=== PATIENT | female | born 1990 | race African-American/Black ===

== ENCOUNTER 2017-08-16 12:28 | Emergency (ER) | payer OTHER ==
[2017-08-16 12:40] VITALS: BP 132/76; BMI 38.0
--- NOTE | 2017-08-16 13:16 | DR.GENAD ---
HPI - PCP Primary Care Physician: NFD - Complaint/Symptoms Chief Complaint:: PT C/O LEFT ABCESS UNDER HER ARM ,, Self Treatment fo Chief Complaint: PT HAS ABCESS NOTED TO PTS LEFT UNDER ARM.... - Source History Provided: Patient - Mode of Arrival Mode of Arrival: Ambulatory - Timing Onset of Chief Complaint: 08/14/17 PMH - PMH Past Medical History: No Past Surgical History: No - Family History History of Family Medical Conditions: No - Social History Does patient currently use any type of tobacco product: Yes Have you used tobacco products in the last 12 months: Yes Type of Tobacco Use: Cigarettes How many years tobacco product used: 8 Does any household member use tobacco: No Alcohol Use: None Do you use any recreational Drugs:: No Lives With: Family Lives Where: Home - infectious screening In the last 2 months have you had wt loss of >10#?: NO Have you had fever, night sweats or hemotysis?: No Have you traveled outside the country in the last 6 months?: No Isolation: Standard ROS - Review of Systems Eyes: No Symptoms Reported ENTM: No Symptoms Reported Respiratoy: No Symptoms Reported Cardiovascular: No Symptoms Reported Gastrointestinal/Abdominal: No Symptoms Reported Genitourinary: No Symptoms Reported Neurological: No Symptoms Reported Musculoskeletal: No Symptoms Reported Integumentary: Lesions (abscess left axilla ) Hematologic/Lymphatic: No Symptoms Reported Endocrine: No Symptoms Reported Psychiatric: No Symptoms Reported All Other Systems: Reviewed and Negative PE - Vital Signs Vitals: Temperature 97.2 F Pulse Rate 109 Respiratory Rate 20 Blood Pressure 132/76 O2 Sat by Pulse Oximetry 99 - General General Appearance: Alert, In No Apparent Distress - Head Head Exam: Normal Inspection - Eyes Eye exam: Normal Appearance, PERRL, EOMI - ENT ENT Exam: Normal Exam External Ear Exam: Normal External Inspection TM/Canal Exam: Bilateral Normal Nose Exam: Normal Nose Exam Mouth Exam: Normal Inspection Throat Exam: Normal Inspection - Neck Neck Exam: Normal Inspection, Full ROM - Chest Chest Inspection: Normal Inspection - Respiratory Respiratory Exam: Normal Lung Sounds Bilat Respiratory Exam: Bilateral Clear to Auscultation - Cardiovascular Cardiovascular Exam: Regular Rate, Normal Rhythm - Abdominal Exam Abdominal Exam: Normal Inspection, Normal Bowel Sounds Abdominal Tenderness: negative: RUQ, RLQ, LUQ, LLQ, Epigastrium, Suprapubic, Diffuse, Mild, Moderate, Severe, Other - Extremities Extremities Exam: Normal Inspection, Full ROM - Back Back Exam: Normal Inspection, Full ROM - Neurologic Neurological Exam: Alert, Oriented X3, CN II-XII Intact - Skin Skin Exam: Warm, Dry, Other (lymph adenitis left axilla) Course - Education/Counseling Education/Counseling: Patient, Education Educated On: Treatment, Diagnosis, Prognosis, Needs for Follow Up (if lesion does not resolve) - Diagnosis Discharge Problem: Lymph node abscess - Discharge Plan Condition: Stable - Follow ups/Referrals Follow ups/Referrals: NFD,None [Primary Care Provider] - 3 days - Instructions
== END 2017-08-16 13:25 | disposition home or self-care (01) ==
LOC: ER 13:01
PROC: 0X9540Z Drainage of Left Axilla with Drainage Device, Percutaneous Endoscopic Approach (ICD-10-PCS; principal; 2017-08-16)
DX: L02.412 Cutaneous abscess of left axilla (principal)
CPT/HCPCS: 87070; 87075; 87205; 99282

== ENCOUNTER 2017-12-25 08:42 | Emergency (ER) | payer OTHER ==
[2017-12-25 08:52] VITALS: BP 151/114; BMI 35.6
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
[2017-12-25 09:21] LABS: BILIRUBIN,URINE NEGATIVE (NEGATIVE); BLOOD/HEMOGLOBIN,URINE 1+ (NEGATIVE); GLUCOSE, URINE NEGATIVE (NEGATIVE); KETONES,URINE NEGATIVE (NEGATIVE); LEUKOCYTE ESTERASE ,URINE 3+ (NEGATIVE); NITRITES,URINE NEGATIVE (NEGATIVE); PH,URINE 6.5 (5.0 - 8.0); PROTEIN,URINE NEGATIVE (NEGATIVE); UROBILINOGEN,URINE NORMAL (NORMAL)
[2017-12-25 09:35] LABS: SERUM PREGNANCY TEST, QUAL POSITIVE >10 mIU/mL
[2017-12-25 09:47] LABS: APPEARANCE,URINE SLIGHTLY HAZY (CLEAR); COLOR,URINE YELLOW (YELLOW); RBC,URINE 0-3 /HPF (NEGATIVE)
[2017-12-25 09:48] LABS: AMORPHOUS SEDIMENT,UR TRACE /HPF (NEGATIVE); BACTERIA,URINE TRACE /HPF (NEGATIVE); SQUAMOUS EPITHELIAL CELL,UR MANY /HPF (NEGATIVE)
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
== END 2017-12-25 11:11 | disposition home or self-care (01) ==
LOC: ER 08:51
DX: R10.84 Generalized abdominal pain (principal); Z3A.08 8 weeks gestation of pregnancy; Z04.71 Encounter for examination and observation following alleged adult physical abuse
CPT/HCPCS: 36415; 76801; 81001; 84702; 84703; 99282; 99284

== ENCOUNTER 2018-07-27 06:24 | Inpatient (IN) ==
[2018-07-27] MEDS ORDERED: D5LR 1L W PITOCIN 10 UNITS/L 10 UNITS/1,000 ML BAG IV ONE ×2 (06:38→17:34)
[2018-07-27] MEDS ORDERED: PITOCIN ONE (06:39)
[2018-07-27] MEDS ORDERED: D5 1/2 NS 1000 ML 1,000 ML IV ONE (06:39)
[2018-07-27] MEDS ORDERED: D5 1/2 NS 1L W PITOCIN 20 UNITS/L 20 UNITS/1,000 ML BAG IV ONE (06:39)
[2018-07-27] MEDS ORDERED: PITOCIN IVP ONE (07:00)
[2018-07-27] MEDS ORDERED: D5 1/2 NS 1000 ML 1,000 ML IV SCH (07:00)
[2018-07-27] MEDS ORDERED: NUBAIN INJ 200 MG VIAL MULTIDOSE IVP PRN (07:00)
[2018-07-27 07:21] LABS: BILIRUBIN,URINE NEGATIVE (NEGATIVE); BLOOD/HEMOGLOBIN,URINE 3+ (NEGATIVE); GLUCOSE, URINE NEGATIVE (NEGATIVE); KETONES,URINE NEGATIVE (NEGATIVE); LEUKOCYTE ESTERASE ,URINE 3+ (NEGATIVE); NITRITES,URINE NEGATIVE (NEGATIVE); PROTEIN,URINE 2+ (NEGATIVE); UROBILINOGEN,URINE NORMAL (NORMAL)
[2018-07-27 07:25] LABS: APPEARANCE,URINE HAZY (CLEAR); COLOR,URINE YELLOW (YELLOW)
[2018-07-27 07:29] LABS: BACTERIA,URINE 1+ /HPF (NEGATIVE); RBC,URINE 0-2 /HPF (NONE SEEN); SQUAMOUS EPITHELIAL CELL,UR RARE /HPF (NEGATIVE)
[2018-07-27] MEDS: D5LR 1L W PITOCIN 10 UNITS/L 10 UNITS/1,000 ML BAG IV PRN ×2 (07:30→18:02)
[2018-07-27 07:32] LABS: BASOPHILS # (AUTO) 0.1 X10^3/uL (0.0-0.1); BASOPHILS % (AUTO) 0.5 % (0.2-1.0); EOSINOPHILS % (AUTO) 0.5 % (0.9-2.9); HEMATOCRIT 31.8 % (36.0-47.0); LYMPHOCYTES # (AUTO) 2.6 X10^3/uL (1.3-2.9); MEAN CORPUSCULAR HEMOGLOBIN 32.2 pg (27.0-34.0); MEAN CORPUSCULAR HGB CONC 34.5 g/dL (33.0-35.0); MEAN CORPUSCULAR VOLUME 93.5 fL (80.0-100.0); MEAN PLATELET VOLUME 7.9 fL (7.4-11.0); MONOCYTES # (AUTO) 0.7 x10^3/uL (0.3-0.8); MONOCYTES % (AUTO) 7.5 % (0.0-13.0); NEUTROPHILS # (AUTO) 6.2 x10^3/uL (2.2-4.8); NEUTROPHILS % (AUTO) 64.5 % (42.0-75.0); PLATELET COUNT 308 X10^3/uL (150.0-450.0); RED CELL DISTRIBUTION WIDTH 15.6 % (11.6-16.5); WHITE BLOOD COUNT 9.6 X10^3/uL (3.6-10.0)
[2018-07-27 07:37] LABS: BLOOD UREA NITROGEN 4 mg/dL (7-18); CALCIUM 8.2 mg/dL (8.5-10.1); CARBON DIOXIDE 24.4 mmol/L (21-32); CHLORIDE 103 mmol/L (98-107); COR NA(FOR HYPERGLY) 137 mmol/L (136-145); CREATININE 0.69 mg/dL (0.55-1.02); SODIUM 136 mmol/L (136-145); eGFR NON BLACK RACES > 60 (>60)
[2018-07-27] MEDS ORDERED: FENTANYL INJ 100 mcg EPI ONE (10:06)
[2018-07-27] MEDS ORDERED: LR 1000 ML IV 1,000 ML IV ONE ×2 (10:06→10:08)
[2018-07-27] MEDS ORDERED: FENTANYL INJ 100 mcg ONE (10:08)
[2018-07-27] MEDS ORDERED: XYLOCAINE 1 % (PLAIN) ONE (10:08)
[2018-07-27] MEDS ORDERED: ADRENALINE CHL INJ ONE (10:09)
[2018-07-27] MEDS ORDERED: NAROPIN EPIDURAL 0.2% + FENTANYL 90MCG 60 ML EPI ONE ×2 (10:09→17:34)
[2018-07-27] MEDS ORDERED: NUBAIN INJ 10 ONE (10:40)
[2018-07-27] MEDS: NAROPIN EPIDURAL 0.2% 60 ML with FENTANYL INJ 100 mcg 90 MCG IVP SCH ×4 (12:40→18:01)
[2018-07-27] MEDS: D5 1/2 NS 1000 ML 1,000 ML with PITOCIN 20 UNITS IV SCH ×2 (19:25)
[2018-07-27] MEDS ORDERED: DERMOPLAST SPRAY TOP PRN (19:26)
[2018-07-27] MEDS ORDERED: BENADRYL INJ 50 MG VIAL IVP PRN (21:05)
[2018-07-27] MEDS: MOTRIN TAB 800 MG PO PRN (23:38)
[2018-07-28] MEDS: D5 1/2 NS 1000 ML 1,000 ML with PITOCIN 20 UNITS IV SCH ×6 (05:10→23:26)
[2018-07-28 05:16] LABS: HEMATOCRIT 30.8 % (36.0-47.0); HEMOGLOBIN 10.5 g/dL (12.0-16.0)
[2018-07-28] MEDS: MOTRIN TAB 800 MG PO PRN ×2 (10:55→23:39)
[2018-07-28] MEDS ORDERED: ADACEL or BOOSTRIX TDaP VACCINE IM ONE (11:00)
[2018-07-28] MEDS: MIRALAX POWDER (1 DOSE 17 G) PO SCH ×2 (15:37→21:45)
[2018-07-29] MEDS: D5 1/2 NS 1000 ML 1,000 ML with PITOCIN 20 UNITS IV SCH ×2 (03:54)
[2018-07-29] MEDS: MOTRIN TAB 800 MG PO PRN (06:42)
[2018-07-29 08:53] VITALS: BP 109/59
== END 2018-07-29 15:25 | disposition home or self-care (01) | DRG 775 ==
LOC: LD 06:24
PROVIDERS: ADMIT Obstetrics & Gynecology Obstetrics; ATTEND Obstetrics & Gynecology Obstetrics
DX: Z37.0 Single live birth; O80 Encounter for full-term uncomplicated delivery; Z23 Encounter for immunization; Z3A.39 39 weeks gestation of pregnancy
CPT/HCPCS: 36415; 59409; 80048; 81001; 85014; 85018; 85025; 86592; 86850; 86880; 86900; 86901; 90715; A4216; A4222; J0171; J1200; J2300; J2590; J3010; J7120; S5010

== ENCOUNTER 2019-09-02 06:10 | Inpatient (IN) ==
[2019-09-02] MEDS ORDERED: D5LR 1L W PITOCIN 10 UNITS/L 10 UNITS/1,000 ML BAG IV PRN (06:35)
[2019-09-02] MEDS ORDERED: D5LR 1L W PITOCIN 10 UNITS/L 10 UNITS/1,000 ML BAG IV ONE (06:50)
[2019-09-02] MEDS ORDERED: D5 1/2 NS 1000 ML 1,000 ML IV ONE (06:51)
[2019-09-02] MEDS ORDERED: MORPHINE SULFATE INJ 2 MG INJ IVP PRN (07:54)
[2019-09-02] MEDS ORDERED: PITOCIN IVP ONE (07:54)
[2019-09-02] MEDS ORDERED: REGLAN INJ 10 MG VIAL IVP PRN (07:54)
[2019-09-02] MEDS ORDERED: NUBAIN INJ 200 MG VIAL MULTIDOSE IVP PRN (07:54)
[2019-09-02] MEDS ORDERED: PHENERGAN INJ 25 MG IM PRN ×2 (07:54→17:01)
[2019-09-02] MEDS ORDERED: AMPICILLIN VIAL 2 GRAM 2 G in NS 100 ML IV + SPIKE MINIBAG* 100 ML IV SCH (08:00)
[2019-09-02] MEDS ORDERED: D5 1/2 NS 1000 ML 1,000 ML IV SCH (08:00)
[2019-09-02] MEDS ORDERED: AMPICILLIN VIAL 2 GRAM ONE (08:19)
[2019-09-02] MEDS ORDERED: NS 100 ML IV 100 ML IV ONE ×2 (08:21→12:10)
[2019-09-02 08:35] LABS: BASOPHILS # (AUTO) 0.1 X10^3/uL (0.0-0.1); BASOPHILS % (AUTO) 0.5 % (0.2-1.0); EOSINOPHILS # (AUTO) 0.1 x10^3/uL (0.0-0.2); EOSINOPHILS % (AUTO) 0.6 % (0.9-2.9); HEMATOCRIT 37.1 % (36.0-47.0); HEMOGLOBIN 12.7 g/dL (12.0-16.0); LYMPHOCYTES # (AUTO) 2.8 X10^3/uL (1.3-2.9); LYMPHOCYTES % (AUTO) 25.7 % (21.0-51.0); MEAN CORPUSCULAR HEMOGLOBIN 30.1 pg (27.0-34.0); MEAN CORPUSCULAR HGB CONC 34.2 g/dL (33.0-35.0); MEAN CORPUSCULAR VOLUME 88.1 fL (80.0-100.0); MEAN PLATELET VOLUME 8.1 fL (7.4-11.0); MONOCYTES # (AUTO) 0.8 x10^3/uL (0.3-0.8); MONOCYTES % (AUTO) 7.2 % (0.0-13.0); NEUTROPHILS # (AUTO) 7.2 x10^3/uL (2.2-4.8); PLATELET COUNT 294 X10^3/uL (150.0-450.0); RED BLOOD COUNT 4.21 X10^6/uL (3.5-5.4); RED CELL DISTRIBUTION WIDTH 14.2 % (11.6-16.5); WHITE BLOOD COUNT 10.9 X10^3/uL (3.6-10.0)
[2019-09-02 08:36] LABS: BLOOD UREA NITROGEN 6 mg/dL (7-18); CALCIUM 8.3 mg/dL (8.5-10.1); CARBON DIOXIDE 23.2 mmol/L (21-32); CHLORIDE 102 mmol/L (98-107); SODIUM 136 mmol/L (136-145); eGFR NON BLACK RACES > 60 (>60)
[2019-09-02 08:51] LABS: BILIRUBIN,URINE NEGATIVE (NEGATIVE); BLOOD/HEMOGLOBIN,URINE NEGATIVE (NEGATIVE); GLUCOSE, URINE NEGATIVE (NEGATIVE); KETONES,URINE NEGATIVE (NEGATIVE); LEUKOCYTE ESTERASE ,URINE 1+ (NEGATIVE); NITRITES,URINE NEGATIVE (NEGATIVE); PROTEIN,URINE 1+ (NEGATIVE); UROBILINOGEN,URINE NORMAL (NORMAL)
[2019-09-02 08:55] LABS: APPEARANCE,URINE CLEAR (CLEAR); COLOR,URINE YELLOW (YELLOW)
[2019-09-02 09:08] LABS: AMORPHOUS SEDIMENT,UR TRACE /HPF (NEGATIVE); BACTERIA,URINE NEGATIVE /HPF (NEGATIVE); RBC,URINE 0-2 /HPF (0-3); SQUAMOUS EPITHELIAL CELL,UR RARE /HPF (NEGATIVE)
[2019-09-02] MEDS ORDERED: LR 1000 ML IV 1,000 ML IV ONE (11:15)
[2019-09-02] MEDS ORDERED: FENTANYL INJ 100 mcg ONE (11:16)
[2019-09-02] MEDS ORDERED: NAROPIN EPIDURAL 0.2% + FENTANYL 90MCG 60 ML EPI ONE (11:16)
[2019-09-02] MEDS ORDERED: AMPICILLIN VIAL 1 GRAM 1 G in NS 50 ML IV + SPIKE MINIBAG* 50 ML IV SCH (12:01)
[2019-09-02] MEDS ORDERED: AMPICILLIN VIAL 1 GRAM ONE (12:06)
[2019-09-02] MEDS ORDERED: PITOCIN ONE (13:56)
[2019-09-02] MEDS ORDERED: D5 1/2 NS 1L W PITOCIN 20 UNITS/L 20 UNITS/1,000 ML BAG IV ONE (13:56)
[2019-09-02] MEDS ORDERED: MOTRIN TAB 800 MG PO PRN (17:01)
[2019-09-02] MEDS ORDERED: ADACEL or BOOSTRIX TDaP VACCINE IM ONE (17:01)
[2019-09-02] MEDS ORDERED: DERMOPLAST SPRAY ONE (17:49)
[2019-09-02] MEDS: D5 1/2 NS 1000 ML 1,000 ML with PITOCIN 20 UNITS IV SCH ×2 (18:04)
[2019-09-02] MEDS ORDERED: BENADRYL INJ 50 MG VIAL IVP PRN (18:24)
[2019-09-03] MEDS: D5 1/2 NS 1000 ML 1,000 ML with PITOCIN 20 UNITS IV SCH ×2 (02:51)
[2019-09-03] MEDS: MOTRIN TAB 800 MG PO PRN ×2 (02:59→12:01)
[2019-09-03 05:00] LABS: HEMATOCRIT 34.5 % (36.0-47.0); HEMOGLOBIN 11.6 g/dL (12.0-16.0)
[2019-09-03] MEDS: PRENATAL PLUS PO SCH (08:25)
[2019-09-04] MEDS: MOTRIN TAB 800 MG PO PRN (01:28)
[2019-09-04] MEDS: PRENATAL PLUS PO SCH (08:41)
[2019-09-04 09:50] VITALS: BP 106/64
== END 2019-09-04 11:30 | disposition home or self-care (01) | DRG 807 ==
LOC: LD 06:10 → MED/SURG 17:06
PROVIDERS: ADMIT Obstetrics & Gynecology Obstetrics; ATTEND Obstetrics & Gynecology Obstetrics
DX: Z23 Encounter for immunization; Z3A.39 39 weeks gestation of pregnancy; B95.1 Streptococcus, group B, as the cause of diseases classified elsewhere; O99.824 Streptococcus B carrier state complicating childbirth; Z37.0 Single live birth
CPT/HCPCS: 36415; 59409; 80048; 81001; 85014; 85018; 85025; 86592; 86850; 86900; 86901; 90715; A4216; A4222; S0197; J0290; J1200; J2590; J3010; J7050; J7120; S5010

== ENCOUNTER 2020-08-24 06:57 | Inpatient (IN) ==
[2020-08-24] MEDS ORDERED: D5 1/2 NS 1000 ML 1,000 ML IV ONE (07:05)
[2020-08-24] MEDS ORDERED: PITOCIN ONE (07:05)
[2020-08-24] MEDS ORDERED: BETADINE SOLN ONE (07:06)
[2020-08-24] MEDS ORDERED: D5 1/2 NS 1L W PITOCIN 20 UNITS/L 20 UNITS/1,000 ML BAG IV ONE (07:07)
[2020-08-24] MEDS ORDERED: D5LR 1L W PITOCIN 10 UNITS/L 10 UNITS/1,000 ML BAG IV ONE ×2 (07:07→19:37)
[2020-08-24] MEDS ORDERED: PHENERGAN INJ 25 MG IM PRN (07:12)
[2020-08-24] MEDS ORDERED: PITOCIN IVP ONE (07:12)
[2020-08-24] MEDS ORDERED: REGLAN INJ 10 MG VIAL IVP PRN (07:12)
[2020-08-24] MEDS ORDERED: STADOL INJ IVP PRN (07:17)
[2020-08-24 07:51] LABS: BILIRUBIN,URINE NEGATIVE (NEGATIVE); BLOOD/HEMOGLOBIN,URINE 4+ (NEGATIVE); GLUCOSE, URINE NEGATIVE (NEGATIVE); KETONES,URINE NEGATIVE (NEGATIVE); LEUKOCYTE ESTERASE ,URINE 3+ (NEGATIVE); NITRITES,URINE NEGATIVE (NEGATIVE); PROTEIN,URINE 1+ (NEGATIVE); UROBILINOGEN,URINE NORMAL (NORMAL)
[2020-08-24 07:55] LABS: BASOPHILS # (AUTO) 0.1 X10^3/uL (0.0-0.1); BASOPHILS % (AUTO) 0.8 % (0.2-1.0); EOSINOPHILS # (AUTO) 0.1 x10^3/uL (0.0-0.2); EOSINOPHILS % (AUTO) 0.5 % (0.9-2.9); HEMATOCRIT 38.3 % (36.0-47.0); HEMOGLOBIN 13.1 g/dL (12.0-16.0); LYMPHOCYTES # (AUTO) 3.1 X10^3/uL (1.3-2.9); MEAN CORPUSCULAR HEMOGLOBIN 30.7 pg (27.0-34.0); MEAN CORPUSCULAR HGB CONC 34.2 g/dL (33.0-35.0); MEAN CORPUSCULAR VOLUME 89.8 fL (80.0-100.0); MEAN PLATELET VOLUME 7.9 fL (7.4-11.0); MONOCYTES # (AUTO) 0.8 x10^3/uL (0.3-0.8); MONOCYTES % (AUTO) 6.2 % (0.0-13.0); NEUTROPHILS # (AUTO) 9.5 x10^3/uL (2.2-4.8); NEUTROPHILS % (AUTO) 69.5 % (42.0-75.0); PLATELET COUNT 270 X10^3/uL (150.0-450.0); RED BLOOD COUNT 4.26 X10^6/uL (3.5-5.4); WHITE BLOOD COUNT 13.7 X10^3/uL (3.6-10.0)
[2020-08-24] MEDS ORDERED: FENTANYL INJ 100 mcg ONE (07:55)
[2020-08-24] MEDS ORDERED: LR 1000 ML IV 1,000 ML IV ONE (07:55)
[2020-08-24] MEDS ORDERED: FENTANYL 2 mcg/mL-ROPIV 0.1%-NS EPIDURAL 200 ML EPI ONE (07:56)
[2020-08-24] MEDS ORDERED: AMPICILLIN VIAL 1 GRAM ONE ×3 (07:58→12:41)
[2020-08-24 08:00] LABS: BLOOD UREA NITROGEN 5 mg/dL (7-18); CARBON DIOXIDE 25.2 mmol/L (21-32); CHLORIDE 103 mmol/L (98-107); CREATININE 0.64 mg/dL (0.55-1.02); SODIUM 138 mmol/L (136-145); eGFR NON BLACK RACES > 60 (>60)
[2020-08-24] MEDS ORDERED: NS 100 ML IV 100 ML IV ONE ×2 (08:00→12:41)
[2020-08-24] MEDS: D5LR 1L W PITOCIN 10 UNITS/L 10 UNITS/1,000 ML BAG IV PRN ×2 (08:00→20:00)
[2020-08-24] MEDS ORDERED: D5 1/2 NS 1000 ML 1,000 ML IV SCH (08:00)
[2020-08-24 08:01] LABS: APPEARANCE,URINE CLOUDY (CLEAR); BACTERIA,URINE 1+ /HPF (NEGATIVE); COLOR,URINE YELLOW (YELLOW); SQUAMOUS EPITHELIAL CELL,UR MODERATE /HPF (NEGATIVE)
[2020-08-24] MEDS ORDERED: AMPICILLIN VIAL 2 GRAM 2 G in NS 100 ML IV + SPIKE MINIBAG* 100 ML IV ONE (08:15)
[2020-08-24] MEDS ORDERED: STADOL INJ ONE (10:05)
[2020-08-24] MEDS ORDERED: BENADRYL CAP/TAB 25 MG PO ONE ×2 (13:22→22:53)
[2020-08-24] MEDS: AMPICILLIN VIAL 1 GRAM 1 G in NS 100 ML IV + SPIKE MINIBAG* 100 ML IV SCH ×3 (13:37→21:25)
[2020-08-24] MEDS ORDERED: BENADRYL CAP/TAB 25 MG PO PRN (22:45)
[2020-08-25] MEDS ORDERED: PHENERGAN INJ 25 MG IM PRN (00:54)
[2020-08-25] MEDS ORDERED: D5 1/2 NS 1000 ML 1,000 ML with PITOCIN 20 UNITS IV SCH ×2 (01:00)
[2020-08-25] MEDS ORDERED: MILK OF MAGNESIA PO PRN (01:49)
[2020-08-25] MEDS ORDERED: DERMOPLAST PAIN RELIEF SPRAY TOP PRN (01:49)
[2020-08-25] MEDS ORDERED: AMBIEN PO PRN (01:49)
[2020-08-25] MEDS ORDERED: BETADINE SOLN ONE (01:53)
[2020-08-25] MEDS: MOTRIN TAB 800 MG PO PRN ×2 (02:52→08:30)
[2020-08-25 06:11] LABS: HEMATOCRIT 38.1 % (36.0-47.0); HEMOGLOBIN 12.7 g/dL (12.0-16.0)
[2020-08-25] MEDS: PRENATAL PLUS PO SCH (08:30)
[2020-08-25] MEDS ORDERED: NORCO 5/325 MG TAB PO PRN (09:20)
[2020-08-26] MEDS: MOTRIN TAB 800 MG PO PRN (00:56)
[2020-08-26] MEDS: PRENATAL PLUS PO SCH (09:30)
[2020-08-26 10:59] VITALS: BP 122/69
== END 2020-08-26 10:35 | disposition home or self-care (01) | DRG 807 ==
LOC: NUR 06:57 → LD 07:08 → MED/SURG 08-25 01:39
PROVIDERS: ADMIT Obstetrics & Gynecology Obstetrics; ATTEND Obstetrics & Gynecology Obstetrics
DX: O80 Encounter for full-term uncomplicated delivery; Z37.0 Single live birth; Z3A.39 39 weeks gestation of pregnancy